=== PATIENT | female | born 1950 | race African-American/Black ===

== ENCOUNTER 2016-08-12 15:25 | Inpatient (IN) | payer OTHER ==
[2016-08-12 15:50] VITALS: BMI 19.0
--- NOTE | 2016-08-12 17:57 | HP ---
COWS - Scale Resting Pulse: 0= [place] 80 or Below Sweatin=Flushed/Facial Moisture Restless Observation: 1= Difficult to Sit Still Pupil Size: 0= Normal to Room Light Bone or Joint Aches: 1= Mild Discomfort Runny Nose/ Eye Tearin= Runny Nose/Eyes GI Upset > 30mins: 2= Nausea/Diarrhea Tremor Observation: 2= Slight Tremor Visible Yawning Observation: 1= 1-2x During Session Anxiety or Irritability: 2=Irritable/Anxious Goose Flesh Skin: 0=Smooth Skin COWS Score: 13 CIWA Score - CIWA Score Nausea/Vomitin-Mild Nausea/No Vomiting Muscle Tremors: 3 Anxiety: 4-Mod. Anxious/Guarded Agitation: 4-Moderately Restless Paroxysmal Sweats: 3 Orientation: 0-Oriented Tacttile Disturbances: 0-None Auditory Disturbances: 0-None Visual Disturbances: 0-None Headache: 0-None Present CIWA-Ar Total Score: 15 Admission ROS [facility] - HPI Chief Complaint: Withdrawal sx. Allergies/Adverse Reactions: Allergies Allergy/AdvReac Type Severity Reaction Status Date / Time No Known Allergies Allergy Verified 08/12/16 17:46 History of Present Illness: 66 y/o woman with a long hx. of Heroin & alcohol dependence is admitted for detox.Pt. has been in previous detox, denies significant sobriety. Exam Limitations: No Limitations - Ebola screening Have you traveled outside of the country in the last 21 days: No Have you had contact with anyone from an Ebola affected area: No Have you been sick,other than usual withdrawal symptoms: No Do you have a fever: No - Review of Systems Constitutional: Diaphoresis EENT: reports: Nose Congestion Respiratory: reports: No Symptoms reported Cardiac: reports: No Symptoms Reported GI: reports: Nausea, Abdominal cramping Musculoskeletal: reports: Muscle Pain Integumentary: reports: Sweating Neuro: reports: Tingling, Tremors Endocrine: reports: No Symptoms Reported Hematology: reports: No Symptoms Reported Psychiatric: reports: No Sypmtoms Reported Other Systems: Reviewed and Negative Patient History - Patient Medical History Hx Anemia: No Hx Asthma: Yes (albuterol) Hx Chronic Obstructive Pulmonary Disease (COPD): No Hx Cancer: No Hx Cardiac Disorders: No Hx Congestive Heart Failure: No Hx Hypertension: Yes Hx Hypercholesterolemia: No Hx Pacemaker: No HX Cerebrovascular Accident: No Hx Seizures: No Hx Dementia: No Hx Diabetes: No Hx Gastrointestinal Disorders: No Hx Liver Disease: No Hx Genitourinary Disorders: No Hx Sexually Transmitted Disorders: No Hx Renal Disease (ESRD): No Hx Thyroid Disease: No Hx Human Immunodeficiency Virus (HIV): No Hx Hepatitis C: No Hx Depression: No Hx Suicide Attempt: No Hx Bipolar Disorder: No Hx Schizophrenia: No - Patient Surgical History Past Surgical History: No - PPD History Previous Implant?: Yes Documented Results: Negative w/o proof PPD to be Administered?: Yes - Reproductive History Patient is a Female of Child Bearing Age (11 -55 yrs old): No Patient : No - Smoking Cessation Smoking history: Current every day smoker Aproximately how many cigarettes per day: 5 Hx Chewing Tobacco Use: No Initiated information on smoking cessation: Yes 'Breaking Loose' booklet given: 08/12/16 - Substance & Tx. History Hx Alcohol Use: Yes Hx Substance Use: Yes Substance Use Type: Alcohol, Cocaine, Heroin Hx Substance Use Treatment: Yes (Detox) - Substances Abused Alcohol Route: Oral Frequency: Daily Amount used: Beer 1(6pack) Age of first use: 16 Date of Last Use: 08/10/16 Crack Route: Smoking Frequency: Daily Amount used: $20.00 Age of first use: 31 Date of Last Use: 08/10/16 Heroin Route: Inhalation Frequency: Daily Amount used: 10 bags Age of first use: 31 Date of Last Use: 08/12/16 Family Disease History - Family Disease History Family Disease History: Other: Father (alcohol & cirrhosis), Mother (alcohol & brain Ca.) Admission Physical Exam S - Vital Signs Vital Signs: Vital Signs - 24 hr 08/12/16 15:47 Temperature 98.3 F Pulse Rate 66 Respiratory 16 Rate Blood Pressure 154/87 - Physical General Appearance: Yes: Tremorous, Irritable, Sweating, Anxious HEENTM: Yes: Nasal Congestion, Rhinorrhea Respiratory: Yes: Chest Non-Tender, Lungs Clear, Normal Breath Sounds Neck: Yes: Supple Breast: Yes: Breast Exam Deferred Cardiology: Yes: Regular Rate, S1, S2 Abdominal: Yes: Normal Bowel Sounds, Flat, Soft Genitourinary: Yes: Within Normal Limits Back: Yes: Within Normal Limits Musculoskeletal: Yes: Within Normal Limits Extremities: Yes: Tremors Neurological: Yes: Fully Oriented, Alert Integumentary: Yes: Diaphoresis Lymphatic: Yes: Within Normal Limits - Diagnostic (1) Alcohol dependence with uncomplicated withdrawal Current Visit: Yes Status: Acute (2) Cocaine dependence, uncomplicated Current Visit: Yes Status: Acute (3) Opioid dependence with withdrawal Current Visit: Yes Status: Acute (4) Asthma Current Visit: Yes Status: Acute Qualifiers: Asthma severity: mild intermittent Asthma complication type: uncomplicated Qualified Code(s): J45.20 - Mild intermittent asthma, uncomplicated (5) HTN (hypertension) Current Visit: Yes Status: Acute Qualifiers: Hypertension type: essential hypertension Qualified Code(s): I10 - Essential (primary) hypertension Cleared for Admission [facility] - Detox or Rehab S Level of Care: Medically Managed Detox Regimen/Protocol: Methadone/Librium [facility] Breath Alcohol Content Breath Alcohol Content: 0 Urine Pregancy Test - Result Urine Test Results: Negative- NO Line Present Urine Drug Screen - Results Drug Screen Negative: No Urine Drug Screen Results: LACIE-Cocaine, OPI-Opiates, OXY-Oxycodone
[2016-08-12] MEDS ORDERED: ACETAMINOPHEN 325 MG TABLET (FP) PO PRN (18:06)
[2016-08-12] MEDS ORDERED: chlordiazePOXIDE HCL 25 MG CAPSULE PO PRN (18:06)
[2016-08-12] MEDS ORDERED: MAGNESIUM HYDROX 2400MG/30ML ORAL SUSPENSION 30 ML CUP PO PRN (18:06)
[2016-08-12] MEDS ORDERED: P-EPHED 60MG/TRIPROLIDI 2.5MG TABLET PO PRN (18:06)
[2016-08-12] MEDS ORDERED: LOPERAMIDE HCL 2 MG CAPSULE PO PRN (18:06)
[2016-08-12] MEDS ORDERED: MAGNESIUM CITRATE 300 ML BOTTLE PO PRN (18:06)
[2016-08-12] MEDS ORDERED: chlordiazePOXIDE HCL 25 MG CAPSULE PO ONE (18:06)
[2016-08-12] MEDS ORDERED: MAG HYDROX/AL HYDROX/SIMETH 30 ML UNIT-DOSE CUP PO PRN (18:06)
[2016-08-12] MEDS ORDERED: hydrOXYzine PAMOATE 50 MG CAPSULE (FP) PO PRN (18:06)
[2016-08-12] MEDS ORDERED: METHADONE HCL 10 MG TABLET (FOR DETOX USE ONLY) PO ONE ×3 (18:06→23:00)
[2016-08-12] MEDS ORDERED: NICOTINE POLACRILEX 2 MG GUM BC PRN (18:06)
[2016-08-12] MEDS ORDERED: MENTHOL/PHENOL 1 EACH UD MM PRN (18:06)
[2016-08-12] MEDS ORDERED: IBUPROFEN 400 MG TABLET (FP) PO PRN (18:06)
[2016-08-12] MEDS: amLODIPine BESYLATE 5 MG TABLET (FP) PO SCH (20:17)
[2016-08-12] MEDS: THIAMINE HCL 100 MG TABLET (FP) PO SCH (22:16)
[2016-08-12] MEDS: NICOTINE 21 MG/24 HOURS TOPICAL PATCH TD SCH (22:17)
[2016-08-12] MEDS: chlordiazePOXIDE HCL 25 MG CAPSULE PO SCH (22:19)
[2016-08-13] MEDS: chlordiazePOXIDE HCL 25 MG CAPSULE PO SCH ×4 (06:14→22:26)
[2016-08-13 09:53] LABS: URINE APPEARANCE SLCLOUDY; URINE BILIRUBIN NEGATIVE (NEGATIVE); URINE BLOOD NEGATIVE (NEGATIVE); URINE COLOR YELLOW; URINE GLUCOSE (UA) NEGATIVE (NEGATIVE); URINE KETONE NEGATIVE (NEGATIVE); URINE NITRITE POSITIVE (NEGATIVE); URINE PROTEIN NEGATIVE (NEGATIVE); URINE UROBILINOGEN NEGATIVE E.U./dl (0.2-1.0)
[2016-08-13 09:56] LABS: MCH 22.8 pg (25.7-33.7); MCHC 31.2 g/dl (32.0-36.0); MEAN CELL VOLUME 73.1 fl (80-96); MEAN PLT VOLUME 9.4 fl (7.5-11.1); PLATELET COUNT 173 K/MM3 (134-434); RDW 14.1 % (11.6-15.6); WHITE BLOOD COUNT 5.7 K/mm3 (4.0-10.0)
[2016-08-13] MEDS ORDERED: METHADONE HCL 10 MG TABLET (FOR DETOX USE ONLY) PO SCH (10:00)
--- NOTE | 2016-08-13 10:03 | PN ---
[facility] CIWA - CIWA Score Nausea/Vomitin-No Nausea/No Vomiting Muscle Tremors: 4-Moderate,w/Arms Extend Anxiety: 3 Agitation: 4-Moderately Restless Paroxysmal Sweats: 3 Orientation: 0-Oriented Tacttile Disturbances: 0-None Auditory Disturbances: 0-None Visual Disturbances: 0-None Headache: 0-None Present CIWA-Ar Total Score: 14 S COWS - Scale Resting Pulse: 1= [place] 81-100 Sweatin=Flushed/Facial Moisture Restless Observation: 0= Sits Still Pupil Size: 0= Normal to Room Light Bone or Joint Aches: 1= Mild Discomfort Runny Nose/ Eye Tearin= None GI Upset > 30mins: 1= Stomach Cramp Tremor Observation of Outstretched Hands: 2= Slight Tremor Visible Yawning Observation: 2= >3x During Session Anxiety or Irritability: 2=Irritable/Anxious Goose Flesh Skin: 0=Smooth Skin COWS Score: 11 [facility] Progress Note (SOAP) Subjective: shakes sweats tried irritable body aches Objective: 08/13/16 10:01 Vital Signs Temperature 97.5 F L 08/13/16 05:54 Pulse Rate 59 L 08/13/16 05:54 Respiratory Rate 16 08/13/16 05:54 Blood Pressure 124/80 08/13/16 05:54 O2 Sat by Pulse Oximetry (%) awake/alert ambulating no acute distress Assessment: 08/13/16 10:02 withdrawal sx Plan: continue detox increase fluids labs pending
[2016-08-13 10:18] LABS: BILIRUBIN,TOTAL 0.3 mg/dL (0.2-1.0); CALCIUM 8.8 mg/dL (8.5-10.1); CREATININE 1.1 mg/dL (0.55-1.02)
[2016-08-13] MEDS: PRENATAL VITAMINS W/ FOLIC ACID TABLET (FP) PO SCH (10:43)
[2016-08-13] MEDS: amLODIPine BESYLATE 5 MG TABLET (FP) PO SCH (10:43)
[2016-08-13] MEDS: NICOTINE 21 MG/24 HOURS TOPICAL PATCH TD SCH (10:44)
[2016-08-13 10:56] LABS: URINE LEUK ESTERASE 3+ (NEGATIVE)
[2016-08-13 11:04] LABS: URINE BACTERIA MANY /hpf (NONE SEEN); URINE MUCUS FEW; URINE RBC 4 /hpf (0-3); URINE WBC 81 /hpf (3-5)
[2016-08-13 12:18] LABS: SICKLE CELL SCREEN NEGATIVE (NEGATIVE)
--- NOTE | 2016-08-13 12:41 | EKG ---
Test Reason : Blood Pressure : / mmHG Vent. Rate : 054 BPM Atrial Rate : 054 BPM P-R Int : 138 ms QRS Dur : 096 ms QT Int : 414 ms P-R-T Axes : 084 085 100 degrees QTc Int : 392 ms SINUS BRADYCARDIA POSSIBLE LEFT ATRIAL ENLARGEMENT LEFT VENTRICULAR HYPERTROPHY WITH REPOLARIZATION ABNORMALITY ABNORMAL ECG NO PREVIOUS ECGS AVAILABLE Confirmed by GRICELDA BROOKE MD ([id number]) on 08/13/2016 12:41:05 PM Referred By: Jakub Macario Confirmed By:GRICELDA BROOKE MD
[2016-08-13] MEDS: THIAMINE HCL 100 MG TABLET (FP) PO SCH (22:26)
[2016-08-14] MEDS: chlordiazePOXIDE HCL 25 MG CAPSULE PO SCH ×3 (05:20→17:55)
--- NOTE | 2016-08-14 09:45 | PN ---
[facility] CIWA - CIWA Score Nausea/Vomitin Muscle Tremors: 3 Anxiety: 2 Agitation: 2 Paroxysmal Sweats: 1-Minimal Palms Moist Orientation: 0-Oriented Tacttile Disturbances: 1-Very Mild Itch/Numbness Auditory Disturbances: 1-Very Mild Visual Disturbances: 1-Very Mild Sensitivity Headache: 2-Mild CIWA-Ar Total Score: 16 [facility] COWS - Scale Resting Pulse: 0= [place] 80 or Below Sweatin= Chills/Flushing Restless Observation: 3= Extraneous Movement Pupil Size: 1= Pupils >than Normal Bone or Joint Aches: 2= Severe Diffuse Aches Runny Nose/ Eye Tearin= Runny Nose/Eyes GI Upset > 30mins: 2= Nausea/Diarrhea Tremor Observation of Outstretched Hands: 2= Slight Tremor Visible Yawning Observation: 1= 1-2x During Session Anxiety or Irritability: 2=Irritable/Anxious Goose Flesh Skin: 0=Smooth Skin COWS Score: 16 [facility] Progress Note (SOAP) Subjective: ALERT,IRRITABLE,ANXIOUS,INTERRUPTED SLEEP,TREMOR,PAIN IN THE BODY AND BACK Objective: 08/14/16 09:43 Vital Signs Temperature 97.7 F 08/14/16 05:49 Pulse Rate 73 08/14/16 05:49 Respiratory Rate 18 08/14/16 05:49 Blood Pressure 100/62 08/14/16 05:49 O2 Sat by Pulse Oximetry (%) 08/14/16 09:43 Laboratory Last Values WBC 5.7 K/mm3 (4.0-10.0) 08/13/16 07:00 RBC 5.16 M/mm3 (3.60-5.2) 08/13/16 07:00 Hgb 11.8 GM/dL (10.7-15.3) 08/13/16 07:00 Hct 37.7 % (32.4-45.2) 08/13/16 07:00 MCV 73.1 fl (80-96) L 08/13/16 07:00 MCHC 31.2 g/dl (32.0-36.0) L 08/13/16 07:00 RDW 14.1 % (11.6-15.6) 08/13/16 07:00 Plt Count 173 K/MM3 (134-434) 08/13/16 07:00 MPV 9.4 fl (7.5-11.1) 08/13/16 07:00 Sickle Cell Screen Negative (NEGATIVE) 08/13/16 07:00 Sodium 142 mmol/L (136-145) 08/13/16 07:00 Potassium 3.9 mmol/L (3.5-5.1) 08/13/16 07:00 Chloride 106 mmol/L (98-107) 08/13/16 07:00 Carbon Dioxide 30 mmol/L (21-32) 08/13/16 07:00 Anion Gap 6 (8-16) L 08/13/16 07:00 BUN 20 mg/dL (7-18) H 08/13/16 07:00 Creatinine 1.1 mg/dL (0.55-1.02) H 08/13/16 07:00 Creat Clearance w eGFR 49.85 (>60) 08/13/16 07:00 Random Glucose 103 mg/dL (74-106) 08/13/16 07:00 Calcium 8.8 mg/dL (8.5-10.1) 08/13/16 07:00 Total Bilirubin 0.3 mg/dL (0.2-1.0) 08/13/16 07:00 AST 10 U/L (15-37) L 08/13/16 07:00 ALT 17 U/L (12-78) 08/13/16 07:00 Alkaline Phosphatase 69 U/L (45-117) 08/13/16 07:00 Total Protein 6.0 g/dl (6.4-8.2) L 08/13/16 07:00 Albumin 3.0 g/dl (3.4-5.0) L 08/13/16 07:00 Urine Color Yellow 08/13/16 07:00 Urine Appearance Slcloudy 08/13/16 07:00 Urine pH 5.0 (5.0-8.0) 08/13/16 07:00 Ur Specific [place] 1.025 (1.001-1.035) 08/13/16 07:00 Urine Protein Negative (NEGATIVE) 08/13/16 07:00 Urine Glucose (UA) Negative (NEGATIVE) 08/13/16 07:00 Urine Ketones Negative (NEGATIVE) 08/13/16 07:00 Urine Blood Negative (NEGATIVE) 08/13/16 07:00 Urine Nitrite Positive (NEGATIVE) 08/13/16 07:00 Urine Bilirubin Negative (NEGATIVE) 08/13/16 07:00 Urine Urobilinogen Negative E.U./dl (0.2-1.0) 08/13/16 07:00 Ur Leukocyte Esterase 3+ (NEGATIVE) H 08/13/16 07:00 Urine RBC 4 /hpf (0-3) 08/13/16 07:00 Urine WBC 81 /hpf (3-5) 08/13/16 07:00 Ur Epithelial Cells Few /hpf (FEW) 08/13/16 07:00 Urine Bacteria Many /hpf (NONE SEEN) 08/13/16 07:00 Urine Mucus Few 08/13/16 07:00 RPR Titer Nonreactive (NONREACTIVE) 08/13/16 07:00 Assessment: 08/14/16 09:44 WITHDRAWAL SYMPTOM Plan: CONTINUE DETOX,REPEAT UA AND URINE FOR C/S R/O UTI,ENCOURAGE ORAL FLUID,BUN IS 20,CREATINE 1.1
[2016-08-14] MEDS: PRENATAL VITAMINS W/ FOLIC ACID TABLET (FP) PO SCH (11:02)
[2016-08-14] MEDS: METHADONE HCL 5 MG TABLET (FOR DETOX USE ONLY) PO SCH (11:03)
[2016-08-14] MEDS: amLODIPine BESYLATE 5 MG TABLET (FP) PO SCH (11:04)
[2016-08-14] MEDS: NICOTINE 21 MG/24 HOURS TOPICAL PATCH TD SCH (11:04)
[2016-08-14] MEDS: chlordiazePOXIDE 5 MG CAPSULE PO SCH (22:13)
[2016-08-14] MEDS: THIAMINE HCL 100 MG TABLET (FP) PO SCH (22:13)
[2016-08-15] MEDS: chlordiazePOXIDE 5 MG CAPSULE PO SCH ×3 (05:48→17:13)
[2016-08-15] MEDS: ALBUTEROL SO4 6.7 GM HFA INHALER IH PRN ×2 (05:55→19:35)
[2016-08-15] MEDS: METHADONE HCL 5 MG TABLET (FOR DETOX USE ONLY) PO SCH (10:20)
[2016-08-15] MEDS: amLODIPine BESYLATE 5 MG TABLET (FP) PO SCH (10:20)
[2016-08-15] MEDS: NICOTINE 21 MG/24 HOURS TOPICAL PATCH TD SCH (10:21)
[2016-08-15] MEDS: PRENATAL VITAMINS W/ FOLIC ACID TABLET (FP) PO SCH (10:21)
--- NOTE | 2016-08-15 10:47 | PN ---
[facility] Progress Note (SOAP) Subjective: sweats mild shakes tired Objective: 08/15/16 10:45 Vital Signs Temperature 98.1 F 08/15/16 10:00 Pulse Rate 80 08/15/16 10:00 Respiratory Rate 18 08/15/16 10:00 Blood Pressure 136/78 08/15/16 10:00 O2 Sat by Pulse Oximetry (%) Laboratory Tests 08/13/16 08/13/16 08/13/16 07:00 07:00 07:00 WBC 5.7 RBC 5.16 Hgb 11.8 Hct 37.7 MCV 73.1 L MCHC 31.2 L RDW 14.1 Plt Count 173 MPV 9.4 Sickle Cell Screen Negative Sodium 142 Potassium 3.9 Chloride 106 Carbon Dioxide 30 Anion Gap 6 L BUN 20 H Creatinine 1.1 H Creat Clearance w eGFR 49.85 Random Glucose 103 Calcium 8.8 Total Bilirubin 0.3 AST 10 L ALT 17 Alkaline Phosphatase 69 Total Protein 6.0 L Albumin 3.0 L Urine Color Urine Appearance Urine pH Ur Specific [place] Urine Protein Urine Glucose (UA) Urine Ketones Urine Blood Urine Nitrite Urine Bilirubin Urine Urobilinogen Ur Leukocyte Esterase Urine RBC Urine WBC Ur Epithelial Cells Urine Bacteria Urine Mucus RPR Titer Nonreactive 08/13/16 07:00 WBC RBC Hgb Hct MCV MCHC RDW Plt Count MPV Sickle Cell Screen Sodium Potassium Chloride Carbon Dioxide Anion Gap BUN Creatinine Creat Clearance w eGFR Random Glucose Calcium Total Bilirubin AST ALT Alkaline Phosphatase Total Protein Albumin Urine Color Yellow Urine Appearance Slcloudy Urine pH 5.0 Ur Specific [place] 1.025 Urine Protein Negative Urine Glucose (UA) Negative Urine Ketones Negative Urine Blood Negative Urine Nitrite Positive Urine Bilirubin Negative Urine Urobilinogen Negative Ur Leukocyte Esterase 3+ H Urine RBC 4 Urine WBC 81 Ur Epithelial Cells Few Urine Bacteria Many Urine Mucus Few RPR Titer labs pending for urine C&S awake/alert ambulating no acute distress Assessment: 08/15/16 10:46 withdrawal sx Plan: continue detox increase fluids f/u pending labs
[2016-08-15 15:26] LABS: URINE APPEARANCE CLOUDY; URINE BILIRUBIN NEGATIVE (NEGATIVE); URINE BLOOD NEGATIVE (NEGATIVE); URINE COLOR LTYELLOW; URINE GLUCOSE (UA) NEGATIVE (NEGATIVE); URINE KETONE NEGATIVE (NEGATIVE); URINE NITRITE POSITIVE (NEGATIVE); URINE PROTEIN NEGATIVE (NEGATIVE); URINE UROBILINOGEN NEGATIVE E.U./dl (0.2-1.0)
[2016-08-15 15:30] LABS: URINE LEUK ESTERASE 3+ (NEGATIVE)
[2016-08-15 16:21] LABS: URINE BACTERIA MODERATE /hpf (NONE SEEN); URINE MUCUS RARE; URINE RBC 6 /hpf (0-3); URINE WBC 119 /hpf (3-5)
[2016-08-15] MEDS: chlordiazePOXIDE HCL 10 MG CAPSULE PO SCH (22:24)
[2016-08-15] MEDS: THIAMINE HCL 100 MG TABLET (FP) PO SCH (22:24)
[2016-08-15] MEDS: diphenhydrAMINE HCL 50 MG CAPSULE PO PRN (22:24)
[2016-08-16] MEDS: chlordiazePOXIDE HCL 10 MG CAPSULE PO SCH ×3 (05:39→18:15)
[2016-08-16] MEDS ORDERED: METHADONE HCL 10 MG TABLET (FOR DETOX USE ONLY) PO SCH (10:00)
[2016-08-16] MEDS: NICOTINE 21 MG/24 HOURS TOPICAL PATCH TD SCH (10:28)
[2016-08-16] MEDS: amLODIPine BESYLATE 5 MG TABLET (FP) PO SCH (10:28)
[2016-08-16] MEDS: PRENATAL VITAMINS W/ FOLIC ACID TABLET (FP) PO SCH (10:28)
--- NOTE | 2016-08-16 11:25 | PN ---
[facility] Progress Note (SOAP) Subjective: interrupted sleep, sweats, achy Assessment: 08/16/16 11:23 Vital Signs Temperature 98.4 F 08/16/16 10:15 Pulse Rate 85 08/16/16 10:15 Respiratory Rate 20 08/16/16 10:15 Blood Pressure 142/69 08/16/16 10:15 O2 Sat by Pulse Oximetry (%) Laboratory Tests 08/13/16 08/13/16 08/13/16 07:00 07:00 07:00 WBC 5.7 RBC 5.16 Hgb 11.8 Hct 37.7 MCV 73.1 L MCHC 31.2 L RDW 14.1 Plt Count 173 MPV 9.4 Sickle Cell Screen Negative Sodium 142 Potassium 3.9 Chloride 106 Carbon Dioxide 30 Anion Gap 6 L BUN 20 H Creatinine 1.1 H Creat Clearance w eGFR 49.85 Random Glucose 103 Calcium 8.8 Total Bilirubin 0.3 AST 10 L ALT 17 Alkaline Phosphatase 69 Total Protein 6.0 L Albumin 3.0 L Urine Color Urine Appearance Urine pH Ur Specific [place] Urine Protein Urine Glucose (UA) Urine Ketones Urine Blood Urine Nitrite Urine Bilirubin Urine Urobilinogen Ur Leukocyte Esterase Urine RBC Urine WBC Ur Epithelial Cells Urine Bacteria Urine Mucus RPR Titer Nonreactive 08/13/16 08/15/16 07:00 09:00 WBC RBC Hgb Hct MCV MCHC RDW Plt Count MPV Sickle Cell Screen Sodium Potassium Chloride Carbon Dioxide Anion Gap BUN Creatinine Creat Clearance w eGFR Random Glucose Calcium Total Bilirubin AST ALT Alkaline Phosphatase Total Protein Albumin Urine Color Yellow Ltyellow Urine Appearance Slcloudy Cloudy Urine pH 5.0 5.0 Ur Specific [place] 1.025 1.010 Urine Protein Negative Negative Urine Glucose (UA) Negative Negative Urine Ketones Negative Negative Urine Blood Negative Negative Urine Nitrite Positive Positive Urine Bilirubin Negative Negative Urine Urobilinogen Negative Negative Ur Leukocyte Esterase 3+ H 3+ H Urine RBC 4 6 Urine WBC 81 119 Ur Epithelial Cells Few Rare Urine Bacteria Many Moderate Urine Mucus Few Rare RPR Titer pt aox3 in nad ambulating 08/16/16 11:24 withdrawal sx's Plan: cont. detox increase fluids motrin prn d/c in am
[2016-08-16] MEDS: THIAMINE HCL 100 MG TABLET (FP) PO SCH (22:17)
[2016-08-16] MEDS: diphenhydrAMINE HCL 50 MG CAPSULE PO PRN (22:18)
--- NOTE | 2016-08-16 23:32 | PN ---
[facility] Progress Note Note: received nurse informed, bp 156/94 down to 139/82 none pharmapeutical intervention continue deotx
[2016-08-17] MEDS: guaiFENesin/D-METHORPHAN HB 10 ML UNIT-DOSE CUPS PO PRN (03:55)
[2016-08-17] MEDS: ALBUTEROL SO4 6.7 GM HFA INHALER IH PRN (03:59)
[2016-08-17] MEDS ORDERED: METHADONE HCL 5 MG TABLET (FOR DETOX USE ONLY) PO SCH (06:00)
--- NOTE | 2016-08-17 08:06 | PN ---
S Progress Note (SOAP) Subjective: alert,anxious,interrupted sleep Objective: 08/17/16 07:54 Vital Signs Temperature 98.2 F 08/17/16 06:00 Pulse Rate 72 08/17/16 06:00 Respiratory Rate 16 08/17/16 06:00 Blood Pressure 114/75 08/17/16 06:00 O2 Sat by Pulse Oximetry (%) urine for c/s showed positive for lactose fermenting negative bacilli 08/17/16 08:10 will start patient on levaquin 250 mgs po daily for 7 days Assessment: 08/17/16 08:10 withdrawal symptom Plan: continue detox,discharge in am
[2016-08-17] MEDS ORDERED: LEVOFLOXACIN 250 MG TABLET (FP) PO SCH (10:00)
[2016-08-17] MEDS: PRENATAL VITAMINS W/ FOLIC ACID TABLET (FP) PO SCH (10:34)
[2016-08-17] MEDS: NICOTINE 21 MG/24 HOURS TOPICAL PATCH TD SCH (10:34)
[2016-08-17] MEDS: amLODIPine BESYLATE 5 MG TABLET (FP) PO SCH (10:34)
[2016-08-17] MEDS: diphenhydrAMINE HCL 50 MG CAPSULE PO PRN (22:42)
[2016-08-17] MEDS: THIAMINE HCL 100 MG TABLET (FP) PO SCH (22:42)
[2016-08-18] MEDS: ALBUTEROL SO4 6.7 GM HFA INHALER IH PRN (00:59)
[2016-08-18] MEDS: guaiFENesin/D-METHORPHAN HB 10 ML UNIT-DOSE CUPS PO PRN (00:59)
--- NOTE | 2016-08-18 08:22 | PN ---
S Progress Note (SOAP) Subjective: ALERT,NO COMPLAINT Objective: 08/18/16 08:20 Vital Signs Temperature 97.3 F L 08/18/16 06:14 Pulse Rate 77 08/18/16 06:14 Respiratory Rate 18 08/18/16 06:14 Blood Pressure 133/69 08/18/16 06:14 O2 Sat by Pulse Oximetry (%) Assessment: 08/18/16 08:20 URINE FOR C/S FINAL C/S SHOWED E COLI,RESIST TO LEVAQUIN,SENSITIVE TO AMPICILIIN ,WILL GIVE AMOXICILLIN 500 MGS PO NOW THEN TID FOR 7 DAYS, 08/18/16 08:24 Plan: DISCHARGE TODAY,FOLLOW UP WITH PMD AT [facility] FOR FOLLOW UP
--- NOTE | 2016-08-18 08:33 | DS ---
[facility] Detox Discharge Summary Admission Date: 08/12/16 Discharge Date: 08/18/16 - History Present History: Alcohol Dependence, Cocaine Dependence, Opioid Dependence Additional Comments: PATIENT WILL FOLLOW UP WITH HER PMD AT [facility] FOR FOLLOW UP OF MEDICAL PROBLEM AND URINARY TRACT INFECTION,SHE HAS NORVASC AND ALBUTEROL INHALER AT HOME Pertinent Past History: ASTHMA HYPERTENSION UTI - Physical Exam Results Vital Signs: Vital Signs Temperature 97.3 F L 08/18/16 06:14 Pulse Rate 77 08/18/16 06:14 Respiratory Rate 18 08/18/16 06:14 Blood Pressure 133/69 08/18/16 06:14 O2 Sat by Pulse Oximetry (%) Pertinent Admission Physical Exam Findings: WITHDRAWAL SYMPTOM - Treatment Hospital Course: Detox Protocol Followed, Detoxed Safely, Responded well, Discharged Condition Good Patient has Accepted a Rehab Referral to: DECLINED - Medication Discharge Medications: Ambulatory Orders Albuterol Sulfate Inhaler - [Ventolin HFA Inhaler -] 2 inh IH Q4H PRN 08/12/16 Amlodipine Besylate [Norvasc -] 5 mg PO DAILY 08/12/16 - Diagnosis (1) Alcohol dependence with uncomplicated withdrawal Current Visit: Yes Status: Acute (2) Asthma Current Visit: Yes Status: Acute Qualifiers: Asthma severity: mild intermittent Asthma complication type: uncomplicated Qualified Code(s): J45.20 - Mild intermittent asthma, uncomplicated (3) Cocaine dependence, uncomplicated Current Visit: Yes Status: Acute (4) HTN (hypertension) Current Visit: Yes Status: Acute Qualifiers: Hypertension type: essential hypertension Qualified Code(s): I10 - Essential (primary) hypertension (5) Opioid dependence with withdrawal Current Visit: Yes Status: Acute (6) UTI (urinary tract infection) Current Visit: Yes Status: Acute - AMA Did Patient Leave Against Medical Advice: No
[2016-08-18] MEDS ORDERED: AMOXICILLIN 500 MG CAPSULE (FP) PO ONE (09:15)
[2016-08-18] MEDS: PRENATAL VITAMINS W/ FOLIC ACID TABLET (FP) PO SCH (09:30)
[2016-08-18] MEDS: amLODIPine BESYLATE 5 MG TABLET (FP) PO SCH (09:30)
[2016-08-18 09:52] VITALS: BP 131/94; PULSE 84; TEMP 97.9
[2016-08-18] MEDS ORDERED: AMOXICILLIN 500 MG CAPSULE (FP) PO SCH (14:00)
== END 2016-08-18 10:16 | disposition home or self-care (01) | DRG 897 ==
LOC: YASAS 15:25 → Y6N 17:35
PROVIDERS: ADMIT Internal Medicine; ATTEND Internal Medicine Addiction Medicine
PROC: HZ2ZZZZ Detoxification Services for Substance Abuse Treatment (ICD-10-PCS; principal; 2016-08-18)
DX: F11.23 Opioid dependence with withdrawal (principal); F14.20 Cocaine dependence, uncomplicated; N39.0 Urinary tract infection, site not specified; F10.230 Alcohol dependence with withdrawal, uncomplicated; F17.210 Nicotine dependence, cigarettes, uncomplicated; I10 Essential (primary) hypertension; J45.20 Mild intermittent asthma, uncomplicated
CPT/HCPCS: 36415; 80053; 81003; 81015; 85027; 85660; 86593; 87086; 87186; 93005; 93010